=== PATIENT | male | born 1975 | race Caucasian/White ===

== ENCOUNTER → 2016-06-17 | Outpatient (CLI) | payer OTHER ==
--- NOTE | 2016-06-17 16:46 | REP ---
Right shoulder three views : There is no fracture or dislocation. Mineralization and joint spaces are normal. There are no calcifications or foreign bodies. Impression: Negative right shoulder . Signed by Vasquez Ro MD 06/17/2016 04:37 P
== END ==
LOC: M WUC 15:15
PROVIDERS: ATTEND Physician Assistant
DX: M25.511 Pain in right shoulder (principal)